=== PATIENT | male | born 1960 | race Caucasian/White ===

== ENCOUNTER 2020-05-27 22:08 | Emergency (ER) | payer SELFPAY ==
[~2020-05-27] VITALS: Ht 170.2 cm; Wt 140.6 kg
[~2020-05-27 22:08] MED LIST: AMLO10 PO; ATOR20 PO; COLCHICINE0.6 MG PO; FURO40 PO; HYDR1TAB94 PO; Klor-Con 1010 MEQ PO; LISI20 PO; METF500 PO; Metoprolol Tar100 MG PO; PROP120ER PO; SULI150 PO
== END 2020-05-28 00:41 | disposition home or self-care (01) ==
LOC: ER 22:08
DX: R04.0 Epistaxis (principal); Z79.01 Long term (current) use of anticoagulants; Z79.899 Other long term (current) drug therapy; Z79.84 Long term (current) use of oral hypoglycemic drugs
CPT/HCPCS: 99283